=== PATIENT | female | born 1985 | race Caucasian/White ===

== ENCOUNTER → 2016-09-17 | Outpatient (CLI) | payer BC ==
[~2016-09-17] MED LIST: BCPILLS PO
[2016-09-17 10:39] LABS: URINE APPEARANCE CLEAR (CLEAR); URINE BILIRUBIN NEG (NEG); URINE COLOR YELLOW; URINE NITRITE NEG (NEG); URINE SPECIFIC GRAVITY 1.006 (1.000-1.030); UROBILINOGEN NEG (NEG)
[2016-09-17 10:53] LABS: MANUAL MICROSCOPIC REQUIRED? NO; REVIEW REQ? NO
== END | disposition home or self-care (01) ==
LOC: C.LAB1850 09:33
PROVIDERS: ATTEND Physician Assistant
DX: N39.0 Urinary tract infection, site not specified (principal); R35.0 Frequency of micturition

== ENCOUNTER → 2016-10-03 | Outpatient (CLI) | payer BC | END | disposition home or self-care (01) | LOC: C.LABSPEC 17:22 | PROVIDERS: ATTEND Physician Assistant | DX: N94.9 Unspecified condition associated with female genital organs and menstrual cycle (principal) ==

== ENCOUNTER → 2016-10-14 | Outpatient (CLI) | payer BC | END | disposition home or self-care (01) | LOC: C.LABSPEC 16:26 | PROVIDERS: ATTEND Physician Assistant | DX: L29.8 Other pruritus (principal) ==

== ENCOUNTER → 2016-10-21 | Outpatient (CLI) | payer BC ==
[2016-10-21 13:41] LABS: URINE APPEARANCE TURBID (CLEAR); URINE BILIRUBIN NEG (NEG); URINE COLOR YELLOW; URINE EPITHELIAL CELL AUTO >30 /lpf (0-5); URINE NITRITE NEG (NEG); URINE SPECIFIC GRAVITY 1.025 (1.000-1.030); UROBILINOGEN NEG (NEG)
[2016-10-21 13:43] LABS: MANUAL MICROSCOPIC REQUIRED? NO; REVIEW REQ? YES
== END | disposition home or self-care (01) ==
LOC: C.LABSPEC 12:55
PROVIDERS: ATTEND Obstetrics & Gynecology
DX: L29.8 Other pruritus (principal); N94.9 Unspecified condition associated with female genital organs and menstrual cycle

== ENCOUNTER 2022-05-14 11:36 | Inpatient (IN) ==
[2022-05-14] MEDS ORDERED: LACTATED RINGER'S 1,000 ML IV SCH ×2 (12:15→14:30)
--- NOTE | 2022-05-14 12:19 | History & Physical Bridge Note ---
Date of Service May 14, 2022 History & Physical Bridge Note I have examined the patient, reviewed the History & Physical and in the interval since the performance of the History & Physical I have noted the following changes of clinical significance: patient in labor 6cm dilated. She was counseled for proceeding on labor and having a vaginal delivery, versus proceeding with all elective delivery for history of vulvodynia. Bailee benefits, risks and alternatives. Would like to proceed with delivery at this time. Consents were signed in the room
[2022-05-14] MEDS ORDERED: AZITHROMYCIN 500 MG in DEXTROSE 5% 250 ML IV ONE (12:30)
--- NOTE | 2022-05-14 12:36 | Discharge Summary ---
Date of Service May 14, 2022 Admission HPI Per Admitting Provider Patient is a 37-year-old G1, P0 at 38 weeks and 5 days who is scheduled for primary low transverse delivery for history of vulvodynia. Upon prior presentation she was denisse every 2 to 3 minutes, and a change from 2 to 5 cm. She was admitted for labor and offered vaginal delivery versus primary C- section. She desires to. We will proceed with a at this time. Consents were signed in the room. Admission Exam (Per Admitting) Constitutional WD/WN, vitals as above Respiratory normal respiratory effort, lungs clear to auscultation Cardiovascular RRR, no murmur, no edema Gastrointestinal (Abdomen) normal bowel sounds, soft, nontender, no hepatosplenomegaly Genitourinary OB Exam Abdomen: + fundal height, + heart tones, + vertex and + regular contractions heart tracing: Baseline 150, moderate variability, positive accelerations, no decelerations, category 1 tracing Tocometer: Contractions every 2 to 3 minutes Cervix: 4-5/80/-1, cephalic Discharge Data Consultations 05/14/22 12:15 Consult Anesthesiology Stat Procedures Performed Operation Date: 05/14/22 12:30 <No data on this case meets the specified criteria>
[2022-05-14] MEDS ORDERED: ONDANSETRON INJ 2 MG/ML 2 ML VIAL ONE (12:40)
[2022-05-14] MEDS ORDERED: fentaNYL citrate 100 MCG/2 ML VIAL ONE (12:40)
[2022-05-14] MEDS ORDERED: MoRPHine SULFATE PF 1 MG/ML 10 ML AMP/VIAL ONE (12:40)
--- NOTE | 2022-05-14 12:40 | Anesthesiology Consultation ---
Date of Service May 14, 2022 Assessment & Plan Chart Review Chart Review: Acceptable Risk for Surgery Consults Requested none ASA ASA2 Proposed Anesthesia Anesthesia Type: Spinal Risk / Benefits Reviewed With: PT / POA / Parent / Guardian, Accepts Plan and Informed Consent Obtained History Surgery Operation Date: 05/14/22 12:30 Proposed Procedures p Section in LD - Shama Bullock MD, PhD Allergies Allergy/AdvReac Type Severity Reaction Status Date / Time No Known Allergies Allergy Verified 05/13/22 11:39 Medications Home Medications Medication Instructions Recorded Confirmed Last Taken Unisom (diphenhydramine) 0.5 tab PO HS 05/13/22 05/13/22 Unknown [id number] 1 mg 1 tab PO QAM 05/13/22 05/13/22 Unknown tablet NPO Date Last Intake of Fluids: 05/14/22 Time Last Intake of Fluids: 06:00 Date Last Intake of Solids: 05/14/22 Time Last Intake of Solids: 06:00 Past Medical History Medical History History of COVID-19 05/01/2022- home test ; cough, congestion, runny nose, loss of taste and smell no hospitalization; currently having mild congestion (usually has sinus issues) Nerve pain h/o, chronic Seasonal allergies Exercise / Class Metabolic Activity II 4-5 Yardwork/Stairs/Walk up hill Past Family History Family History Other No family history of adverse response to anesthesia Past Surgical History Surgical History Hx of wisdom tooth extraction Past Anesthesia History No Hx of Anesthesia Complications and No Family Hx of Anesthesia Complications History of PONV No Hx of PONV and No Hx of Motion Sickness Social History Smoking Status: Never smoker Hx Alcohol Use: No Hx Substance Use: No substance use type: does not use Physical Exam Vital Signs Last Vital Signs Temp 98.8 F 05/14/22 11:51 Pulse 96 H 05/14/22 11:53 Resp 18 05/14/22 11:51 BP 117/76 05/14/22 11:53 ENMT Mouth: no dentition abnormality Thyromental Distance: > or= 3.5 Finger Breadths Mallampati Class: II Neck normal visual inspection Respiratory normal respiratory effort Auscultation: lungs clear to auscultation bilaterally Cardiovascular Rate/Rhythm: regular rate and regular rhythm
[2022-05-14] MEDS ORDERED: CITRIC ACID/SODIUM CITRATE 15 ML UDC PO SCH (12:45)
[2022-05-14] MEDS ORDERED: ceFAZolin 2000MG 2,000 MG/15 ML SYR IV SCH (12:45)
[2022-05-14 13:16] LABS: Basophils # (auto) 0.05 K/uL (0-0.2); Basophils % (auto) 0.3 %; Eosinophils # (auto) 0.03 K/uL (0-0.50); Eosinophils % (auto) 0.2 %; Hematocrit (blood only) 36.2 % (34.1-44.9); Hemoglobin 12.5 g/dl (12.0-16.0); Immature Granulocytes # (auto) 0.16 K/uL (0.00-0.02); Lymphocytes # (auto) 1.01 K/uL (1.2-3.4); Lymphocytes % (auto) 6.6 %; Mean Corpuscular Hemoglobin 30.4 pg (25.0-34.0); Mean Corpuscular Hgb Conc 34.5 g/dL (32.0-36.0); Mean Corpuscular Volume 88.1 fL (80.0-100.0); Monocytes # (auto) 0.73 K/uL (0.24-0.82); Monocytes % (auto) 4.7 %; Neutrophils % (auto) 87.2 %; Platelet Count 248 K/uL (130-400); RDW Coefficient of Variation 12.1 % (11.5-14.5); Red Blood Count 4.11 M/uL (3.93-5.22); White Blood Count 15.38 K/ul (4.8-10.8)
[2022-05-14] MEDS ORDERED: NALOXONE HCL 1 MG in SODIUM CHLORIDE 0.9% 1000ML 1,000 ML IV PRN (13:35)
[2022-05-14] MEDS ORDERED: NALOXONE HCL 0.4 MG/1 ML VIAL/CARP IV PRN (13:35)
[2022-05-14] MEDS ORDERED: MEPERIDINE HCL 25 MG/ML CARP/VIAL IV PRN (13:35)
[2022-05-14] MEDS ORDERED: MoRPHine SULFATE PF 1 MG/ML 10 ML AMP/VIAL INT SPINAL ONE (13:35)
[2022-05-14] MEDS ORDERED: LACTATED RINGER'S 500 ML IV PRN (13:35)
[2022-05-14] MEDS ORDERED: NALBUPHINE HCL INJ 10 MG/ML AMP IV PRN (13:35)
[2022-05-14] MEDS ORDERED: ePHEDrine sulfate 50 MG/ML AMP IV PRN (13:35)
[2022-05-14] MEDS ORDERED: ONDANSETRON INJ 2 MG/ML 2 ML VIAL IV PRN (13:35)
[2022-05-14] MEDS ORDERED: diphenhydrAMINE 50 MG/ML VIAL IV PRN ×2 (13:35→14:21)
[2022-05-14] MEDS ORDERED: NALOXONE HCL 0.08 MG in SYRINGE 1.8 ML IV PRN (13:35)
[2022-05-14] MEDS ORDERED: OXYTOCIN 10 UNITS/ML 10ML VIAL ONE (13:37)
[2022-05-14] MEDS ORDERED: SODIUM CHLORIDE 0.9% 1000ML 1,000 ML IV SCH (13:45)
[2022-05-14] MEDS ORDERED: NO NARCOTICS OR SEDATIVES SCH (13:45)
[2022-05-14] MEDS ORDERED: DC INTRASPINAL MORPHINE SCH (13:45)
[2022-05-14] MEDS ORDERED: MAGNESIUM HYDROXIDE SUSP 30 ML UDC PO PRN (14:21)
[2022-05-14] MEDS ORDERED: HYDROCORTISONE ACETATE 25 MG SUPP PR PRN (14:21)
[2022-05-14] MEDS ORDERED: SENNA 8.6 MG TAB PO PRN (14:21)
[2022-05-14] MEDS ORDERED: BENZOCAINE 20% AER SPR 82.5 GM CAN EXT PRN (14:21)
[2022-05-14] MEDS ORDERED: DIPHTHERIA/TETANUS/PERTUSSIS 0.5 ML SYR/VIAL IM ONE (14:21)
--- NOTE | 2022-05-14 14:29 | Operative Report ---
Post Operative Report Pre & Post Diagnosis Operation Date: 05/14/22 12:30 Pre-Op Diagnosis: Scheduled Section; Laboring Post-Op Diagnosis: Scheduled Section; Laboring I identified the patient and participated in the time-out.: Yes Procedure Operation Date: 05/14/22 12:30 Actual Procedures p Section in LD; Live Male Infant at 1348(Bilateral) - Shama Bullock MD, PhD Surgeon Shama Bullock MD, PhD Printing Plate Clerk instrument room technician x2 Estimated Blood Loss 600 Findings Consistent with Post-Op Diagnosis Liveborn male delivered at 1348, with arm cord around right arm, weight pending with Apgars 8/9. Intact placenta with three-vessel cord. Cord pH not obtained. Normal-appearing uterus with approximately 2 cm subserosal fibroid on the posterior aspect of the uterus. Normal-appearing bilateral fallopian tubes and ovaries seen at time of surgery. Fluids See anesthesia record Specimens Placenta Drains Dent catheter Anesthesia Type Spinal Complications None Disposition Accompanied Patient To Recovery: No Indications History of vulvodynia, patient requesting primary delivery Description of Procedure CD Delivery Note Procedure Summary: section was recommended. Risks, benefits and alternatives were discussed including but not limited to infection, bleeding that may require blood products or hysterectomy for life saving measures, injury to surrounding organs including but not limited to bowel, bladder, ureters, tubes and ovaries and/or the baby. Should injury occur it could require longer/additional surgery to repair. Patient was also counselled about risk of DVT/PE, and injury to infan t during delivery. The patient stated understanding and desired to proceed. All questions were answered posed by patient. Prior to being taken to the OR, 2 grams of cefazolin IV and 500 mg of azithr omycin IV was administered. The patient was taken to the operating room where regional anesthesia was found to be adequate. She was then prepared and draped in the usual sterile fashion in the dorsal supine position with a leftward tilt displacing the uterus. Dent was draining to gravity. SCDs were on bilateral lower extremities. A pfannenstiel skin incision was then made with the scalpel and carried through to the underlying layer of fascia. The fascia was incised in the midline and the incision extended laterally with the Carrasquillo scissors. The superior aspect of the facial incision was then grasped with the Jhonathan clamps, elevated and the underlying rectus muscles dissected off bluntly. Attention was then turned to the inferior aspect of this incision which in a similar fashion was grasped, elevated with the Jhonathan clamps and the rectus muscle dissected off bluntly. The rectus muscles were in the midline. The peritoneum identified, grasped with the pick-ups and entered sharply with the Metzenbaum scissors. The peritoneal incision was then extended superiorly and inferiorly with good visualization of the bladder. The bladder blade was inserted and the vesicouterine peritoneum was identified, grasped with the pick-ups, and entered sharply with Metzenbaum scissors. This incision was then extended laterally and the bladder flap created digitally and the bladder blade was reinserted. The lower uterine segment was identified and incised in a transverse fashion with the scalpel. The uterine incision was then extended bluntly laterally. Artificial rupture of membranes demonstrated clear fluid. The bladder blade was removed. The fetus was in cephalic presentation. The 's head delivered atraumatically. The anterior shoulders were delivered followed by the posterior shoulders then the remainder of the body. The 's mouth and nose were bulb suctioned. The umbilical cord was clamped times two and cut. The infant was handed off to the awaiting pediatric staff. A male was delivered weight pending with APGARS of 8 at 1 minute and 9 at 5 minutes. The infant was taken to the recovery room for transition. Cord blood gases were not obtained. The placenta was removed with manual removal. 30 units of oxytocin were added to IVF and allowed to run freely. The uterus was exteriorized and cleared of all clots and debris. The uterine incision was inspected and found to be without any extensions and was repaired with 0 Vicryl in a running, locked fashion. A second imbricating layer was performed. Upon inspection, the repaired hysterotomy was found to be hemostatic. The uterus was firm and returned to the abdomen. The gutters were cleared of all clots and debris. Lauren was applied on the hysterotomy and noted to be hemostatic. Peritoneum was closed with 2-0 Vicryl in a running fashion. The fascia was reapproximated with 0 Vicryl in a running fashion. The subcutaneous layer was closed with 2-0 Vicryl in an interrupted fashion to reapproximate the subcutaneous tissue.. The skin was closed in a subcuticular fashion with 4-0 vicryl. Dermabond and pressure bandage was applied over incision. The patient tolerated the procedure well. Sponge, lap and needle counts were correct x4. The patient was taken to the recovery room in stable condition. Attestation: My Printing Plate Clerk was necessary throughout the procedure(s) for tissue retraction. I understand that section 1842 (b)(7)(D) of the Social Security Act generally prohibits Medicare physician fee schedule payment for the services of [id number] in teaching hospitals when qualified residents are available to furnish such services. I certify that the services for which payment is claimed were medically necessary, and that no qualified resident was available to perform the services. I further understand that these services are subject to post-payment review by the Medicare carrier. I attest to the content of the Intraoperative Record and any orders documented therein. Any exceptions are noted below.
[2022-05-14] MEDS ORDERED: OXYTOCIN 30 UNITS in LACTATED RINGER'S 1,000 ML IV SCH (14:30)
--- NOTE | 2022-05-14 15:10 | Anesthesiology Progress Note ---
Date of Service May 14, 2022 Anesthesia Post Procedure Vital Signs Vital Signs: Temp Pulse Resp BP Pulse Ox 05/14/22 15:07 106 H 131/69 05/14/22 15:06 114 H 99 05/14/22 15:01 113 H 100 05/14/22 14:56 128 H 100 05/14/22 14:51 125 H 100 05/14/22 14:46 97 H 118/64 100 05/14/22 14:41 103 H 100 05/14/22 14:36 96 H 122/59 L 100 05/14/22 14:31 98 H 100 05/14/22 14:26 100 05/14/22 14:26 103 H 05/14/22 14:26 101 H 122/63 05/14/22 11:53 96 H 117/76 05/14/22 11:51 18 05/14/22 11:51 98.8 F 18 Transfer of Care Handoff Completed per policy Notes Mental Status: alert / awake / arousable and participated in evaluation Nausea / Vomiting: adequately controlled Pain: adequately controlled Airway Patency, RR, SpO2: stable & adequate BP & HR: stable & adequate Hydration State: stable & adequate Neuraxial Anesthesia: was administered and sensory block is resolving Anesthetic Complications: no major complications apparent and Pt Satisfied with anesthetic care
[2022-05-14] MEDS: SIMETHICONE 80 MG CHEW PO SCH ×2 (17:02→21:06)
[2022-05-14] MEDS: KETOROLAC 30 MG/ML VIAL IV PRN ×2 (17:34→23:44)
[2022-05-14] MEDS: DOCUSATE SODIUM 100 MG CAP PO SCH (21:05)
[2022-05-15] MEDS: KETOROLAC 30 MG/ML VIAL IV PRN (05:57)
[2022-05-15 06:24] LABS: Basophils # (auto) 0.01 K/uL (0-0.2); Basophils % (auto) 0.1 %; Eosinophils # (auto) 0.01 K/uL (0-0.50); Eosinophils % (auto) 0.1 %; Hematocrit (blood only) 30.1 % (34.1-44.9); Hemoglobin 10.4 g/dl (12.0-16.0); Immature Granulocytes # (auto) 0.11 K/uL (0.00-0.02); Immature Granulocytes % (auto) 0.8 %; Lymphocytes # (auto) 0.71 K/uL (1.2-3.4); Lymphocytes % (auto) 4.9 %; Mean Corpuscular Hemoglobin 30.1 pg (25.0-34.0); Mean Corpuscular Hgb Conc 34.6 g/dL (32.0-36.0); Mean Platelet Volume 9.9 fL (9.4-12.3); Monocytes # (auto) 0.64 K/uL (0.24-0.82); Monocytes % (auto) 4.4 %; Neutrophils % (auto) 89.7 %; Platelet Count 187 K/uL (130-400); RDW Coefficient of Variation 12.2 % (11.5-14.5); RDW Standard Deviation 38.7 fL (36.4-46.3); Red Blood Count 3.46 M/uL (3.93-5.22); White Blood Count 14.58 K/ul (4.8-10.8)
[2022-05-15] MEDS ORDERED: KETOROLAC 30 MG/ML VIAL IV PRN (07:36)
[2022-05-15] MEDS ORDERED: diphenhydrAMINE Capsule 25 MG CAP PO PRN (07:36)
[2022-05-15] MEDS ORDERED: PROMETHAZINE HCL 25 MG in SODIUM CHLORIDE 0.9% 50 ML IV PRN (07:36)
[2022-05-15] MEDS ORDERED: ONDANSETRON INJ 2 MG/ML 2 ML VIAL IV PRN (07:36)
--- NOTE | 2022-05-15 07:46 | Obstetrical Progress Note ---
Date of Service May 15, 2022 Assessment & Plan Admission and Anticipated Discharge Date Admission Date: May 14, 2022 Subjective Patient is seen and examined. She feels well, no complaints. Pain is under control with oral meds. Ambulating without dizziness Voiding without difficulty Tolerating regular diet with out N&V Flatus + BM neg Bleeding is minimal No fever/ chills/ CP/ SOB/ N&V/ Leg pain Breast feeding without problems Vital Signs Temp Pulse Resp BP Pulse Ox O2 Del Method 05/15/22 07:35 18 99 05/15/22 07:35 36.7 C 97 H 18 119/79 99 Room Air 05/15/22 06:00 18 97 05/15/22 05:30 16 97 05/15/22 03:00 16 97 05/15/22 04:00 18 96 05/15/22 05:05 16 98 05/15/22 03:32 36.6 C 98 H 18 124/72 97 Room Air 05/15/22 02:30 16 96 05/15/22 01:30 16 96 05/15/22 00:27 16 98 05/15/22 00:02 36.3 C L 94 H 18 122/78 100 Room Air 05/14/22 23:30 16 98 05/14/22 22:30 18 100 Intake & Output 05/14/22 05/15/22 05/15/22 22:59 06:59 14:59 Output Total 150 / 900 750 / 900 Balance -150 / -900 -750 / -900 Output: Urine Amount (Catheter) 150 / 900 750 / 900 Dent/Indwelling 150 / 900 750 / 900 Lab Results 05/14/22 05/14/22 05/15/22 Range/Units 13:01 13:01 05:59 WBC 15.38 H 14.58 H (4.8-10.8) K/ul RBC 4.11 3.46 L (3.93-5.22) M/uL Hgb 12.5 10.4 L (12.0-16.0) g/dl Hct 36.2 30.1 L (34.1-44.9) % MCV 88.1 87.0 (80.0-100.0) fL MCH 30.4 30.1 (25.0-34.0) pg MCHC 34.5 34.6 (32.0-36.0) g/dL RDW Std Deviation 39.0 38.7 (36.4-46.3) fL RDW Coeff of Maria Ines 12.1 12.2 (11.5-14.5) % Plt Count 248 187 (130-400) K/uL MPV 10.0 9.9 (9.4-12.3) fL Immature Gran % (Auto) 1.0 0.8 % Neut % (Auto) 87.2 89.7 % Lymph % (Auto) 6.6 4.9 % Taney % (Auto) 4.7 4.4 % Eos % (Auto) 0.2 0.1 % Baso % (Auto) 0.3 0.1 % Neut # (Auto) 13.40 H 13.10 H (1.4-6.5) K/uL Lymph # (Auto) 1.01 L 0.71 L (1.2-3.4) K/uL Taney # (Auto) 0.73 0.64 (0.24-0.82) K/uL Eos # (Auto) 0.03 0.01 (0-0.50) K/uL Baso # (Auto) 0.05 0.01 (0-0.2) K/uL Immature Gran # (Auto) 0.16 H 0.11 H (0.00-0.02) K/uL Blood Type O Positive Antibody Screen NEGATIVE PE: General: Alert, orientedx3, NAD CVS: S1S2 RRR Lungs; CTAB Abd: soft, NT, ND, BS+, fundus firm, below Umbilicus Incision: Clean, dry, intact Perineum intact, Lochia rubra minimal Ext; NT, no edema AP: 37 yo s/p C Section, pod# 1 VSS Afebrile doing well Continue routine postop care Encourage ambulation, PO intake All questions were answered Vital Signs Temp Pulse Resp BP Pulse Ox O2 Del Method 05/15/22 06:00 18 97 05/15/22 05:30 16 97 05/15/22 03:00 16 97 05/15/22 04:00 18 96 05/15/22 05:05 16 98 05/15/22 03:32 36.6 C 98 H 18 124/72 97 Room Air 05/15/22 02:30 16 96 05/15/22 01:30 16 96 05/15/22 00:27 16 98 05/15/22 00:02 36.3 C L 94 H 18 122/78 100 Room Air 05/14/22 23:30 16 98 05/14/22 22:30 18 100 05/14/22 21:30 18 98 05/14/22 21:30 20 100 05/14/22 20:30 16 97 Intake & Output 05/14/22 05/15/22 05/15/22 22:59 06:59 14:59 Output Total 150 / 900 750 / 900 Balance -150 / -900 -750 / -900 Output: Urine Amount (Catheter) 150 / 900 750 / 900 Dent/Indwelling 150 / 900 750 / 900 Lab Results 05/14/22 05/14/22 05/15/22 Range/Units 13:01 13:01 05:59 WBC 15.38 H 14.58 H (4.8-10.8) K/ul RBC 4.11 3.46 L (3.93-5.22) M/uL Hgb 12.5 10.4 L (12.0-16.0) g/dl Hct 36.2 30.1 L (34.1-44.9) % MCV 88.1 87.0 (80.0-100.0) fL MCH 30.4 30.1 (25.0-34.0) pg MCHC 34.5 34.6 (32.0-36.0) g/dL RDW Std Deviation 39.0 38.7 (36.4-46.3) fL RDW Coeff of Maria Ines 12.1 12.2 (11.5-14.5) % Plt Count 248 187 (130-400) K/uL MPV 10.0 9.9 (9.4-12.3) fL Immature Gran % (Auto) 1.0 0.8 % Neut % (Auto) 87.2 89.7 % Lymph % (Auto) 6.6 4.9 % Taney % (Auto) 4.7 4.4 % Eos % (Auto) 0.2 0.1 % Baso % (Auto) 0.3 0.1 % Neut # (Auto) 13.40 H 13.10 H (1.4-6.5) K/uL Lymph # (Auto) 1.01 L 0.71 L (1.2-3.4) K/uL Taney # (Auto) 0.73 0.64 (0.24-0.82) K/uL Eos # (Auto) 0.03 0.01 (0-0.50) K/uL Baso # (Auto) 0.05 0.01 (0-0.2) K/uL Immature Gran # (Auto) 0.16 H 0.11 H (0.00-0.02) K/uL Blood Type O Positive Antibody Screen NEGATIVE Results & Data ([facility]) Vital Signs (Past 12 Hours) Vital Signs Temp Pulse Resp BP Pulse Ox O2 Del Method 05/15/22 06:00 18 97 05/15/22 05:30 16 97 05/15/22 03:00 16 97 05/15/22 04:00 18 96 05/15/22 05:05 16 98 05/15/22 03:32 36.6 C 98 H 18 124/72 97 Room Air 05/15/22 02:30 16 96 05/15/22 01:30 16 96 05/15/22 00:27 16 98 05/15/22 00:02 36.3 C L 94 H 18 122/78 100 Room Air 05/14/22 23:30 16 98 05/14/22 22:30 18 100 05/14/22 21:30 18 98 05/14/22 21:30 20 100 05/14/22 20:30 16 97
[2022-05-15] MEDS: DOCUSATE SODIUM 100 MG CAP PO SCH ×2 (08:42→20:35)
[2022-05-15] MEDS: PRENATAL VITAMIN 1 TAB PO SCH (08:42)
[2022-05-15] MEDS: SIMETHICONE 80 MG CHEW PO SCH ×4 (08:42→20:34)
[2022-05-15] MEDS: FERROUS SULFATE 325 MG TAB PO SCH (08:42)
[2022-05-15] MEDS: oxyCODONE/ACETAMINOPHEN 5mg/325mg TAB PO PRN ×3 (08:42→20:35)
[2022-05-15] MEDS: IBUPROFEN 600 MG TAB PO PRN ×2 (12:31→20:35)
[2022-05-15] MEDS ORDERED: bisacodyL 5 MG TABEC PO SCH (20:00)
[2022-05-16] MEDS: oxyCODONE/ACETAMINOPHEN 5mg/325mg TAB PO PRN ×3 (05:34→20:03)
[2022-05-16] MEDS: IBUPROFEN 600 MG TAB PO PRN ×2 (05:35→20:03)
[2022-05-16 07:13] LABS: Hematocrit (blood only) 33.7 % (34.1-44.9); Hemoglobin 11.3 g/dl (12.0-16.0)
[2022-05-16] MEDS: PRENATAL VITAMIN 1 TAB PO SCH (08:17)
[2022-05-16] MEDS: DOCUSATE SODIUM 100 MG CAP PO SCH ×2 (08:17→20:03)
[2022-05-16] MEDS: FERROUS SULFATE 325 MG TAB PO SCH (08:17)
[2022-05-16] MEDS: SIMETHICONE 80 MG CHEW PO SCH ×4 (08:17→20:03)
--- NOTE | 2022-05-16 10:50 | Obstetrical Progress Note ---
Date of Service May 16, 2022 Subjective Ambulation: ambulating normally Voiding: no voiding problems Passing Gas:: Yes Diet Tolerance:: regular diet Lochia:: Small Feeding Type:: breast feeding doing well. OOB. tolerating diet Physical Exam Constitutional WD/WN, vitals as above well developed and well nourished Gastrointestinal (Abdomen) Inspection/Auscultation: abdomen normal to inspection abdomen soft and non-tender. fundus firm Musculoskeletal Extremities: extremities normal to inspection Skin no rashes, warm and dry Neurologic patellar DTR's 2+ bilat, sensation intact Psychiatric A+Ox3, euthymic affect Results & Data ([facility]) Vital Signs (Past 12 Hours) Vital Signs Temp Pulse Resp BP Pulse Ox O2 Del Method 05/16/22 08:05 36.6 C 104 H 16 125/80 95 Room Air 05/16/22 00:33 36.8 C 103 H 16 131/87 Room Air Laboratory Results Laboratory Results - last 72 hr 05/14/22 05/14/22 05/15/22 13:01 13:01 05:59 WBC 15.38 H 14.58 H RBC 4.11 3.46 L Hgb 12.5 10.4 L Hct 36.2 30.1 L MCV 88.1 87.0 MCH 30.4 30.1 MCHC 34.5 34.6 RDW Std Deviation 39.0 38.7 RDW Coeff of Maria Ines 12.1 12.2 Plt Count 248 187 MPV 10.0 9.9 Immature Gran % (Auto) 1.0 0.8 Neut % (Auto) 87.2 89.7 Lymph % (Auto) 6.6 4.9 Meade % (Auto) 4.7 4.4 Eos % (Auto) 0.2 0.1 Baso % (Auto) 0.3 0.1 Neut # (Auto) 13.40 H 13.10 H Lymph # (Auto) 1.01 L 0.71 L Meade # (Auto) 0.73 0.64 Eos # (Auto) 0.03 0.01 Baso # (Auto) 0.05 0.01 Immature Gran # (Auto) 0.16 H 0.11 H Blood Type O Positive Antibody Screen NEGATIVE 05/16/22 06:45 WBC RBC Hgb 11.3 L Hct 33.7 L MCV MCH MCHC RDW Std Deviation RDW Coeff of Maria Ines Plt Count MPV Immature Gran % (Auto) Neut % (Auto) Lymph % (Auto) Meade % (Auto) Eos % (Auto) Baso % (Auto) Neut # (Auto) Lymph # (Auto) Meade # (Auto) Eos # (Auto) Baso # (Auto) Immature Gran # (Auto) Blood Type Antibody Screen
[2022-05-16] MEDS ORDERED: bisacodyL 10 MG SUPP PR PRN (14:21)
[2022-05-17] MEDS: IBUPROFEN 600 MG TAB PO PRN ×4 (03:59→17:50)
[2022-05-17] MEDS: SIMETHICONE 80 MG CHEW PO SCH ×3 (08:29→17:50)
[2022-05-17] MEDS: DOCUSATE SODIUM 100 MG CAP PO SCH ×2 (08:29→17:58)
[2022-05-17] MEDS: FERROUS SULFATE 325 MG TAB PO SCH (08:29)
[2022-05-17] MEDS: PRENATAL VITAMIN 1 TAB PO SCH (08:29)
--- NOTE | 2022-05-17 09:41 | Obstetrical Progress Note ---
Date of Service May 17, 2022 Assessment & Plan Admission and Anticipated Discharge Date Admission Date: May 14, 2022 Subjective Patient is seen and examined. She feels well, no complaints. Pain is under control with oral meds. Ambulating without dizziness Voiding without difficulty Tolerating regular diet with out N&V Flatus + BM + Bleeding is minimal No fever/ chills/ CP/ SOB/ N&V/ Leg pain Breast/ bottle feeding problems. Baby is in NICU, on IVF, hypoglycemic Vital Signs Temp Pulse Resp BP Pulse Ox O2 Del Method 05/17/22 07:25 36.9 C 106 H 16 133/83 Room Air 05/17/22 04:00 36.8 C 108 H 18 145/81 H Room Air 05/16/22 20:20 Room Air 05/16/22 20:20 37.1 C 130 H 20 128/84 96 Room Air 05/16/22 15:13 36.6 C 103 H 16 131/87 97 Room Air Lab Results 05/14/22 05/14/22 05/15/22 Range/Units 13:01 13:01 05:59 WBC 15.38 H 14.58 H (4.8-10.8) K/ul RBC 4.11 3.46 L (3.93-5.22) M/uL Hgb 12.5 10.4 L (12.0-16.0) g/dl Hct 36.2 30.1 L (34.1-44.9) % MCV 88.1 87.0 (80.0-100.0) fL MCH 30.4 30.1 (25.0-34.0) pg MCHC 34.5 34.6 (32.0-36.0) g/dL RDW Std Deviation 39.0 38.7 (36.4-46.3) fL RDW Coeff of Maria Ines 12.1 12.2 (11.5-14.5) % Plt Count 248 187 (130-400) K/uL MPV 10.0 9.9 (9.4-12.3) fL Immature Gran % (Auto) 1.0 0.8 % Neut % (Auto) 87.2 89.7 % Lymph % (Auto) 6.6 4.9 % Tyler % (Auto) 4.7 4.4 % Eos % (Auto) 0.2 0.1 % Baso % (Auto) 0.3 0.1 % Neut # (Auto) 13.40 H 13.10 H (1.4-6.5) K/uL Lymph # (Auto) 1.01 L 0.71 L (1.2-3.4) K/uL Tyler # (Auto) 0.73 0.64 (0.24-0.82) K/uL Eos # (Auto) 0.03 0.01 (0-0.50) K/uL Baso # (Auto) 0.05 0.01 (0-0.2) K/uL Immature Gran # (Auto) 0.16 H 0.11 H (0.00-0.02) K/uL Blood Type O Positive Antibody Screen NEGATIVE 05/16/22 Range/Units 06:45 WBC (4.8-10.8) K/ul RBC (3.93-5.22) M/uL Hgb 11.3 L (12.0-16.0) g/dl Hct 33.7 L (34.1-44.9) % MCV (80.0-100.0) fL MCH (25.0-34.0) pg MCHC (32.0-36.0) g/dL RDW Std Deviation (36.4-46.3) fL RDW Coeff of Maria Ines (11.5-14.5) % Plt Count (130-400) K/uL MPV (9.4-12.3) fL Immature Gran % (Auto) % Neut % (Auto) % Lymph % (Auto) % Tyler % (Auto) % Eos % (Auto) % Baso % (Auto) % Neut # (Auto) (1.4-6.5) K/uL Lymph # (Auto) (1.2-3.4) K/uL Tyler # (Auto) (0.24-0.82) K/uL Eos # (Auto) (0-0.50) K/uL Baso # (Auto) (0-0.2) K/uL Immature Gran # (Auto) (0.00-0.02) K/uL Blood Type Antibody Screen PE: General: Alert, orientedx3, NAD CVS: S1S2 RRR Lungs; CTAB Abd: soft, NT, ND, BS+, fundus firm, below Umbilicus Incision: Clean, dry, intact Perineum intact, Lochia rubra minimal Ext; NT, no edema AP: 37 yo s/p C Section, pod# 3 VSS Afebrile doing well Continue routine postop care Encourage ambulation, PO intake Baby is staying All questions were answered D/C home tomorrow Results & Data ([facility]) Vital Signs (Past 12 Hours) Vital Signs Temp Pulse Resp BP O2 Del Method 05/17/22 07:25 36.9 C 106 H 16 133/83 Room Air 05/17/22 04:00 36.8 C 108 H 18 145/81 H Room Air
[2022-05-17] MEDS: oxyCODONE/ACETAMINOPHEN 5mg/325mg TAB PO PRN ×2 (09:42→17:50)
[2022-05-17] MEDS ORDERED: OR MISCELLANEOUS MED ONE (09:43)
[2022-05-17] MEDS ORDERED: PERCOCET 5/325MG HOMEPACK PO ONE (17:53)
== END 2022-05-17 18:41 | disposition home or self-care (01) | DRG 788 ==
LOC: OPB 11:36 → 4S1 11:37 → 4E2 17:10